=== PATIENT | male | born 1970 | race Caucasian/White ===

== ENCOUNTER 2019-11-13 00:38 | Emergency (ER) | payer SELFPAY ==
[~2019-11-13] VITALS: Ht 175.3 cm; Wt 100.0 kg
[2019-11-13 01:55] VITALS: BP 128/91
== END 2019-11-13 02:07 | disposition home or self-care (01) ==
LOC: ER 00:38
DX: F10.129 Alcohol abuse with intoxication, unspecified (principal); Y90.9 Presence of alcohol in blood, level not specified; R03.0 Elevated blood-pressure reading, without diagnosis of hypertension
CPT/HCPCS: 99283